=== PATIENT | female | born 1980 | race African-American/Black ===

== ENCOUNTER 2021-04-06 12:50 | Outpatient (CLI) | payer BC, SELFPAY ==
--- NOTE | ~2021-04-06 | US_ITS ---
EXAMINATION: US pelvic complete w TV DATE: 04/06/2021 13:52 INDICATION: Abnormal vaginal bleeding Comparison:No prior studies for comparison. TECHNIQUE: Multiple transabdominal and endovaginal sonographic images of the pelvis performed. FINDINGS: The uterus measures 16.5 x 9.6 x 10.5 cm. There are multiple uterine fibroids, largest disc rete mass measuring 9.4 x 8.2 x 6.9 cm. The endometrial complex measures 2.4 cm. The right ovary measures 3.5 x 2.4 x 1.6 cm and the left ovary measures 4.2 x 3.3 x 2.1 cm. There is a left ovarian cyst measuring 2.8 x 2.3 x 1.3 cm There is no free fluid in the pelvis. There are no abnormal masses seen on either side. IMPRESSION: 1. Enlarged uterus containing multiple fibroids, largest measuring 9.4 x 8.2 x 6.9 cm. 2: Endometrial thickening measuring 2.4 cm. 3: Left ovarian cyst measuring 2.8 cm greatest dimension. Reviewed, dictated and finalized at location B. NESS CONSULTANT
== END 2021-04-06 12:51 | disposition home or self-care (01) ==
PROVIDERS: PCP Family Medicine; Visit Provider Student in an Organized Health Care Education/Training Program
DX: N93.9 Abnormal uterine and vaginal bleeding, unspecified (principal); D25.9 Leiomyoma of uterus, unspecified; N83.202 Unspecified ovarian cyst, left side; R93.89 Abnormal findings on diagnostic imaging of other specified body structures
CPT/HCPCS: 76830; 76856

== ENCOUNTER 2021-07-01 10:12 | Outpatient (CLI) | payer BC, SELFPAY ==
--- NOTE | ~2021-07-01 | MM_ITS ---
EXAMINATION: MM screening janay BI w nubia HISTORY: Screening mammogram TECHNIQUE: Craniocaudal and mediolateral oblique 3-D tomosynthesis images were obtained and synthetic 2-D images were generated. CAD analysis was submitted and interpreted. COMPARISON: No prior mammogram is available for comparison at this institution. BREAST PARENCHYMAL COMPOSITION: There are scattered areas of fibroglandular density. FINDINGS: RIGHT BREAST: There are multiple small adjacent masses in the anterior third of the lower inner breas t. LEFT BREAST: There is focal asymmetry in the posterior third of the upper outer quadrant of the breas t. IMPRESSION: 1. Bilateral breast findings as described above which may represent the patient's baseline however no comparison is currently available. 2. Comparison with prior mammograms is necessary. BI-RADS Category 0: Incomplete: Needs comparison with prior mammograms. Reviewed, dictated and finalized at location A. IMPRESSION: 1. Bilateral breast findings as described above which may represent the patient 's baseline however no comparison is currently available. 2. Comparison with prior mammograms is necessary. BI-RADS Category 0: Incomplete: Needs comparison with prior mammograms.
== END 2021-07-01 10:13 | disposition home or self-care (01) ==
LOC: ANHIMG 10:16
PROVIDERS: PCP Family Medicine; Visit Provider Student in an Organized Health Care Education/Training Program
DX: Z12.31 Encounter for screening mammogram for malignant neoplasm of breast (principal); R92.8 Other abnormal and inconclusive findings on diagnostic imaging of breast
CPT/HCPCS: 77063; 77067

== ENCOUNTER 2021-09-23 13:12 | Outpatient (CLI) | payer BC, SELFPAY ==
--- NOTE | ~2021-09-23 | MMUS_ITS ---
EXAMINATION: MM diagnostic janay LT w nubia, US breast LT limited HISTORY: Focal asymmetry of the left breast on screening mammogram TECHNIQUE: Craniocaudal, mediolateral, and mediolateral oblique 3-D tomosynthesis images of the left breast were performed and synthetic 2-D images were generated. Spot compression views are also obtain ed. CAD analysis was submitted and interpreted. High resolution limited left breast ultrasound was pe rformed. COMPARISON: 07/01/2021, 09/11/2019 FINDINGS: MAMMOGRAPHIC FINDINGS: There is a return to baseline fibroglandular appearance with spot compression of the left breast in t he area questioned on screening mammogram. ULTRASOUND: There is no evidence of focal abnormal solid or cystic mass in the vicinity of the mammographic findi ng in question. IMPRESSION: 1. No mammographic or sonographic evidence of malignancy. 2. Recommend routine screening mammography. BI-RADS Category 2: Benign finding(s). Reviewed, dictated and finalized at location A. IMPRESSION: 1. No mammographic or sonographic evidence of malignancy. 2. Recommend routine screening mammography. BI-RADS Category 2: Benign finding(s).
== END 2021-09-23 13:13 | disposition home or self-care (01) ==
PROVIDERS: PCP Family Medicine; Visit Provider Student in an Organized Health Care Education/Training Program
DX: R92.8 Other abnormal and inconclusive findings on diagnostic imaging of breast (principal)
CPT/HCPCS: 76642; 77061; 77065; G0279

== ENCOUNTER 2021-11-04 11:27 | Outpatient (CLI) | payer BC, SELFPAY | END 2021-11-04 11:28 | disposition home or self-care (01) | LOC: ANHGOSHLAB 11:30 | PROVIDERS: PCP Family Medicine; Visit Provider Nurse Practitioner Family | DX: Z11.3 Encounter for screening for infections with a predominantly sexual mode of transmission (principal) | CPT/HCPCS: 36415 ==

== ENCOUNTER 2022-01-31 14:22 | Outpatient (CLI) | payer BC, SELFPAY ==
[2022-01-31 18:58] LABS: Hemoglobin A1C 6.3 % (<5.7)
[2022-01-31 19:08] LABS: Basophils Absolute Auto 0.1 K/mm3 (0.0-0.1); Basophils Percent Auto 0.7 % (0.2-1.2); Eosinophils Absolute Auto 0.2 K/mm3 (0-0.3); Eosinophils Percent Auto 2.6 % (0-4.4); Hematocrit 34.3 % (37.0-47.0); Hemoglobin 10.1 g/dL (12.0-15.0); Immature Granulocyte Absolute 0.02 K/mm3 (0.00-0.031); Immature Granulocyte Percent A 0.3 % (0-0.5); Lymphocytes Absolute Auto 2.31 K/mm3 (0.9-3.2); Lymphocytes Percent Auto 30.3 % (18.3-44.2); Mean Corpuscular HGB Conc 29.4 g/dl (32-36); Mean Corpuscular Hemoglobin 21.9 pg (26-34); Mean Corpuscular Volume 74.4 fl (80-100); Monocytes Absolute Auto 0.7 K/mm3 (0.1-0.6); Monocytes Percent Auto 8.7 % (2.6-8.5); Neutrophils Absolute Auto 4.4 K/mm3 (1.3-6.7); Neutrophils Percent Auto 57.4 % (45.5-73.1); Platelet Count Result 329 k/mm3 (150-375); Red Blood Count 4.61 M/mm3 (4.2-5.4); Red Cell Distribution Width 14.2 % (11.5-14.5); White Blood Count 7.6 K/mm3 (4.5-10.0)
[2022-01-31 20:25] LABS: Platelet Estimate Adequate (Adequate); Schistocytes None Seen (NORMAL)
[2022-01-31 20:26] LABS: Hypochromasia 1+ (NORMAL)
== END 2022-01-31 14:23 | disposition home or self-care (01) ==
LOC: ANHGOSHLAB 14:25
PROVIDERS: PCP Family Medicine; Visit Provider Family Medicine
DX: E11.9 Type 2 diabetes mellitus without complications (principal); D64.9 Anemia, unspecified
CPT/HCPCS: 36415; 83036; 85025

== ENCOUNTER 2022-12-07 15:43 | Outpatient (CLI) | payer BC, SELFPAY ==
[2022-12-07 20:31] LABS: Alanine Aminotransferase 22 U/L (6-35); Albumin Level 4.4 g/dL (3.5-5.1); Alkaline Phosphatase 40 U/L (38-126); Anion Gap 9 mmol/L (8-16); Aspartate Amino Transferase 34 U/L (14-36); Bilirubin,Total 0.5 mg/dL (0.2-1.3); Blood Urea Nitrogen 13 mg/dL (7-17); Calcium 9.5 mg/dL (8.4-10.2); Carbon Dioxide 26 mmol/L (22-30); Chloride 102 mmol/L (98-107); Estimated Glomerular Filt Rate > 60; Glucose 92 mg/dL (65-110); Potassium 3.7 mmol/L (3.4-5.0); Sodium 137 mmol/L (137-145)
[2022-12-07 21:26] LABS: Hemoglobin A1C 6.2 % (<5.7)
== END 2022-12-07 15:44 | disposition home or self-care (01) ==
LOC: ANHGOSHLAB 15:44
PROVIDERS: PCP Family Medicine; Visit Provider Family Medicine
DX: E11.9 Type 2 diabetes mellitus without complications (principal); I10 Essential (primary) hypertension
CPT/HCPCS: 36415; 80053; 83036

== ENCOUNTER 2023-11-06 13:27 | Outpatient (CLI) | payer BC, SELFPAY ==
--- NOTE | ~2023-11-06 | MM_ITS ---
EXAMINATION: MM screening [facility] BI w nubia HISTORY: Screening TECHNIQUE: Craniocaudal and mediolateral oblique 3-D tomosynthesis images were obtained and synthetic 2-D images were generated. CAD analysis was submitted and interpreted. COMPARISON: Comparison to multiple prior studies sequentially, with oldest reviewed study dated 09/10. BREAST PARENCHYMAL COMPOSITION: Not dense: There are scattered areas of fibroglandular density. FINDINGS: There is no evidence of suspicious mass, calcification, or architectural distortion to sugg est malignancy in either breast. There has been no suspicious interval change. IMPRESSION: 1. No mammographic evidence of malignancy. 2. Recommend routine screening mammography in one year. BI-RADS Category 1: Negative Reviewed, dictated and finalized at location B.
== END 2023-11-06 13:28 | disposition home or self-care (01) ==
LOC: MICIMG 13:28
PROVIDERS: PCP Family Medicine; Visit Provider Family Medicine
DX: Z12.31 Encounter for screening mammogram for malignant neoplasm of breast (principal)
CPT/HCPCS: 77063; 77067

== ENCOUNTER 2024-05-28 12:00 | Emergency (ER) | payer BC, SELFPAY ==
--- NOTE | ~2024-05-28 | XR_ITS ---
Clinical Indication: Cough PA and lateral views of the chest: Comparison: None Findings: The lungs are clear, without evidence of focal consolidation or pleural effusion. Cardiome diastinal silhouette is within normal limits. Bones and soft tissues are unremarkable. Impression: Normal chest. Reviewed, dictated and finalized at location . Impression: Normal chest.
--- NOTE | 2024-05-28 12:01 | ED_ITS ---
HPI - SOB/Dyspnea General Chief Complaint: Upper Respiratory Infection Stated Complaint: SOB Time Seen by Provider: 05/28/24 12:00 Source: patient Mode of arrival: ambulatory Limitations: no limitations History of Present Illness HPI Narrative: Jacquelyn is a 43-year-old female patient presenting to the clinic today with complaints of shortness of breath times x2-3 days. Has non-productive cough. Slight nasal congestion. History of reactive airways disease on record but patient denies. No history of PE, COPD,CHF, or pneumonia. Denies any fever, chills, or body aches. History of hypertension and type 2 diabetes. Related Data Allergies Allergy/AdvReac Type Severity Reaction Status Date / Time No Known Allergies Allergy Verified 05/28/24 12:12 Review of Systems Review of Systems: Pertinent positives per HPI. Patient denies any fever, chills, rash, headache, visual changes, dizziness, chest pain, palpitations, nausea, vomiting, diarrhea, constipation, abdominal pain, or any urinary issues. [facility] Past Medical History Medical History Environmental allergies Type 2 diabetes mellitus without complications Vitamin D deficiency Dyslipidemia Essential (primary) hypertension Fibroid HTN (hypertension) Surgical History Surgical History History of myomectomy (~01/04/23) exploratory laparotomy and abdominal myomectomy Family History Family History Other Fibroid Social History Social History Social History: Caffeine- tea Smoking status: Never smoker Alcohol intake: never Substance use: never Substance use type: does not use Lack of Transportation: No Lack of Food: Never True Current Housing: I Have Housing Concerned About Future Housing: No Difficulty Paying Gas/Electric Bills: No Difficulty Paying for Meds: No Currently Unemployed: No Education: Grade School Difficulty w/ Childcare or Family Care: No Living arrangements: with family Additional living arrangements comments: with Occupation/Education: occupation Gender identity (if verbalized by the patient): Female Sexual Orientation (if Verbalized by the Patient): Straight or Heterosexual Spiritual care concerns: No Agree to blood products: Yes Comments At the time of my signature, I reviewed and agree with the nursing past medical, surgical, social, and family history. There is no relevant family history pertinent to the patient complaint. Exam Narrative: General: Well-developed, well nourished, in [id number] respiratory distress Head: Normocephalic, atraumatic Eyes: Pupils equally round and reactive to light bilaterally, EOM intact, sclera and conjunctive clear, no discharge, lids normal Ears: TMs intact and clear, ear canals clear, no drainage, grossly hearing normal. Nose: Nares patent, no discharge, no inflammation, no sinus tenderness. Mouth: Oral pharynx without lesions or masses, good dentition, MMM. Neck: Supple, trachea midline, no enlargement of anterior or posterior cervical nodes, no thyroid masses or goiter palpable. Cardio: Regular rate and rhythm, s1 and s2 normal, no murmur appreciated. Resp: Lung sounds tight with expiratory wheezing, increased respiratory rate, sitting in tripod position with some intercostal retractions, oxygenation is 97% on room air Course Course Emergency Course: Portions of this record may have been created with voice recognition software. Level of Care: Express Care Visit Vital Signs Vital signs: Vital Signs Temperature 36.7 C 05/28/24 12:09 Pulse Rate 97 05/28/24 12:09 Respiratory Rate 32 H 05/28/24 12:09 Blood Pressure 178/101 H 05/28/24 12:09 Pulse Oximetry 97 05/28/24 12:09 Oxygen Delivery Room Air 05/28/24 12:09 Temperature 36.7 C 05/28/24 12:09 Pulse Rate 83 05/28/24 12:42 Respiratory Rate 24 H 05/28/24 12:42 Blood Pressure 178/101 H 05/28/24 12:09 Pulse Oximetry 94 05/28/24 12:42 Oxygen Delivery Room Air 05/28/24 12:09 Vital signs reviewed MDM - SOB/Dyspnea MDM Narrative Medical decision making narrative: At the time of visit patient is resting comfortably on the exam table. Patient appears to be nontoxic. Medications: Solu-Medrol 125 mg IM and DuoNeb hand-held neb treatment. Lung sounds improved aeration after DuoNeb but still having inspiratory and expiratory wheezing Labs: COVID testing was performed and was negative in the clinic today. Diagnostics: Chest x-ray was performed and was negative for any acute cardiopulmonary process. Plan: I suspect patient has bronchitis. Prescription for prednisone, albuterol inhaler, and Tessalon Perles was sent to the pharmacy. Supportive measures were discussed with the patient and they voiced understanding discharge instructions and agrees to treatment plan. Return precautions reviewed Differential Diagnosis Differential diagnosis: Likely acute exacerbation of chronic obstructive airways disease, congestive heart failure, community acquired pneumonia, asthma with exacerbation, pulmonary embolism and other (Viral illness, COVID) Lab Data Labs: Lab Results 05/28/24 Range/Units 12:20 POC SARS CoV-2 Ag Negative (Negative) Imaging Data Radiologist's impression: ITS Impressions Chest X-Ray 05/28/24 12:57 Impression: Normal chest. Discharge Plan Discharge Clinical Impression: Bronchitis Patient Disposition: Home Condition: Stable Instructions: Antibiotic Form, Acute Bronchitis (ED) Additional Instructions: Chest x-rays negative for any acute cardiopulmonary process Solu-Medrol 125 mg IM given in the clinic today DuoNeb hand-held neb treatment given in the clinic today Take prescription medications only as prescribed-albuterol inhaler, Tessalon Perles, and prednisone Start prednisone on May 29, 2024 Increase fluids and stay well hydrated Tylenol/motrin for pain/fever Flonase and OTC antihistamines as directed Vicks vapor rub to open sinuses Sinus rinses for congestion Cepacol spray, cough drops, throat lozenges, warm tea with honey/lemon, gargle salt water to soothe throat BRAT diet for diarrhea Clear liquids x 24 hours then advance as tolerated for nausea/vomiting Go to the ED if you develop a worsening in your condition- high fever not controlled by Tylenol or Motrin, dehydration, weakness, lethargy, shortness of breath, or chest pain. Follow up with your PCP in 3-5 days if symptoms persist. Patient Language: Other Prescriptions: New prednisone 20 mg tablet 40 mg PO DAILY 5 Days Qty: 10 0RF benzonatate 200 mg capsule 200 mg PO TID 7 Days Qty: 21 0RF albuterol sulfate 90 mcg/actuation HFA aerosol inhaler 2 puff inhalation Q4-6H PRN (Reason: shortness of breath or wheezing) 30 Days Qty: 8.5 0RF No Action cholecalciferol (vitamin D3) 50 mcg (2,000 unit) tablet 50 mcg PO DAILY Qty: 90 2RF (DME) OneTouch Verio test strips Strip See Rx Instructions .Route Qty: 100 1RF Rx Instructions: check blood sugars qdaily As directed (DME) lancets [OneTouch Delica Plus Lancet] 33 gauge misc See Rx Instructions .Route Qty: 100 1RF Rx Instructions: check blood sugars qdaily As directed (DME) blood-glucose meter [Blood Glucose Monitoring] Kit See Rx Instructions .Route Qty: 1 0RF Rx Instructions: check blood sugars q.day As directed metformin 500 mg tablet extended release 24 hr 1,000 mg PO DAILY Qty: 60 3RF ferrous sulfate 325 mg (65 mg iron) tablet 325 mg PO DAILY Qty: 90 1RF labetalol 200 mg tablet See Rx Instructions .ROUTE .COMPLEX Qty: 180 0RF Dose Instruction: TAKE 1 TABLET BY MOUTH EVERY 12 HOURS Rx Instructions: TAKE 1 TABLET BY MOUTH EVERY 12 HOURS amlodipine 5 mg tablet See Rx Instructions .ROUTE .COMPLEX Qty: 90 0RF Dose Instruction: Take 1 tablet by mouth once daily Rx Instructions: Take 1 tablet by mouth once daily Follow-up/Referrals: Regan Menard MD [Primary Care Provider] - Time of Disposition: 13:08 Quality NIHSS Nursing Documentation ED NIHSS nursing documentation: reviewed/agree
[2024-05-28 12:09] VITALS: BP 178/101; PULSE 97; RESP 32; TEMP 36.7; O2SAT 97
[2024-05-28] MEDS: methylPREDNISolone SOD SUCC 125 MG VIAL IM (12:18)
[2024-05-28] MEDS: IPRATROPIUM BR 0.02% INH SOLN 0.5 MG/2.5 ML VIAL INHALATION (12:18)
[2024-05-28] MEDS: ALBUTEROL SULFATE NEB 2.5 MG/3 ML INH INHALATION (12:19)
[2024-05-28 12:20] VITALS: PULSE 97; RESP 32; O2SAT 97
[2024-05-28 12:42] VITALS: PULSE 83; RESP 24; O2SAT 94
[2024-05-28 12:44] LABS: EDCOVIDSCREEN Negative (Negative)
[2024-05-28 13:19] VITALS: BP 157/91; PULSE 79; RESP 24; O2SAT 99
== END 2024-05-28 13:19 | disposition home or self-care (01) ==
PROVIDERS: Emergency Provider Nurse Practitioner Family; PCP Family Medicine
DX: J40 Bronchitis, not specified as acute or chronic (principal); Z20.822 Contact with and (suspected) exposure to COVID-19; E11.9 Type 2 diabetes mellitus without complications; Z79.84 Long term (current) use of oral hypoglycemic drugs; I10 Essential (primary) hypertension; E78.5 Hyperlipidemia, unspecified; E55.9 Vitamin D deficiency, unspecified
CPT/HCPCS: 71046; 87426; 94640; 99213; G0463; J2919

== ENCOUNTER 2024-07-26 00:15 | Day surgery (SDC) | payer BC, SELFPAY ==
[2024-04-15 09:30] VITALS: BMI 27.7
--- OUTSIDE RECORDS SUMMARY | 2024-04-22 00:08 | XMS_ITS | Clinical Summary ---
Author Organization [facility] Address [address] [place] [address] Care Team Providers Care Nurse Technician Name Role Phone Lisa Menard MD Primary Care Provider Allergies No known active allergies Medications hydroCHLOROthia zide (HYDRODIURIL) 25 mg tabletIndicatio ns:hypertension Take 1 tablet (25 mg total) by mouth structural analyst before breakfast 3 Active metFORMIN XR (GLUCOPHAGE XR) 500 mg 24 hr tablet Take 1 tablet (500 mg total) by mouth 2 (two) times a day 3 Active rosuvastatin (CRESTOR) 5 mg tabletIndicatio ns:hyperlipidem ia Take 1 tablet (5 mg total) by mouth nightly 3 Active ferrous sulfate 325 mg (65 mg of elemental iron) tabletIndicatio ns:Iron Deficiency Anemia Take 1 tablet (65 mg of elemental iron total) by mouth 3 (three) times a day with meals Active tranexamic acid (Lysteda) 650 mg tabletIndicatio ns:Menorrhagia Take 2 tablets by mouth every 8 hours by mouth for up to 5 days. 30 tablet 3 3 Active Additional Information Patient not taking.Informant: Self, Reported on 02/08/2023 labetaloL (NORMODYNE,GUTIERREZ DATE) 200 mg tabletIndicatio ns:hypertension Take 1 tablet (200 mg total) by mouth every 12 (twelve) hours 3 Active cholecalciferol (VITAMIN D-3) 5,000 unit tabletIndicatio ns:Vitamin D Deficiency Take 1 tablet (5,000 Units total) by mouth once a week Monday Active acetaminophen (TYLENOL) 500 mg tablet Take 2 tablets (1,000 mg total) by mouth every 6 (six) hours as needed for pain 60 tablet Active ibuprofen (ADVIL,MOTRIN) 600 mg tablet Take 1 tablet (600 mg total) by mouth every 6 (six) hours as needed for pain 30 tablet 3 Active Additional Information Patient not taking.Reported on 02/08/2023 polyethylene glycol (MIRALAX) 17 gram/dose bulk powder Take 17 g by mouth daily 235 g 3 Active Additional Information Patient not taking.Reported on 02/08/2023 oxyCODONE (ROXICODONE) 5 mg immediate release tabletIndicatio ns:Pain Take 1 tablet (5 mg total) by mouth every 4 (four) hours as needed for pain 10 tablet 3 Active Additional Information Patient not taking.Reported on 02/08/2023 Active Problems Problem Noted Date Diagnosed Date Fibroid uterus 01/04/2023 Intramural leiomyoma of uterus 10/13/2022 Surgical History Surgery Date Site/Laterality Comments NO PAST SURGERIES Medical History Medical History Date Comments Hypertension High cholesterol DM2 (diabetes mellitus, type 2) (HCC) Leiomyoma Family History Medical History Relation Name Comments No Known Problems Father No Known Problems Mother Anesthesia problems Neg Hx Relation Name Status Comments Father Mother Social History Tobacco Use Types Packs/Day Years Used Date Smoking Tobacco: Never Smokeless Tobacco: Never Tobacco Cessation:Counseling Given: Not Answered AUDIT-C Answer Date Recorded Q1: How often do you have a drink containing alcohol? Never 01/04/2023 Q2: How many drinks containi ng alcohol do you have on a typical day when you are drinking? Patient does not drink Q3: How often do you have si x or more drinks on one occasion? Never 01/04/2023 Personal Safety Answer Date Recorded Have you ever been in or are you currently in a harmful physical or emotional relationship or is someone making you feel afraid or unsafe? Denies 01/04/2023 Comments No Sex and Gender Information Value Date Recorded Sex Assigned at Not on file Legal Sex Female 11:14 AM CDT Gender Identity Not on file Sexual Orientation Not on file Obstetrics History Para Term AB IAB SAB Ectopic Multiple Livin g Live Births 0 0 0 0 0 0 0 0 0 0 0 Last Filed Vital Signs Vital Sign Reading Time Taken Comments Blood Pressure 196/92 02/08/2023 1:27 PM REMOTE PILOT OPERATOR Pulse 70 01/07/2023 12:43 PM REMOTE PILOT OPERATOR Temperature 36.9 C (98.4 F) 01/07/2023 12:43 PM REMOTE PILOT OPERATOR Respiratory Rate 18 01/07/2023 12:43 PM REMOTE PILOT OPERATOR Oxygen Saturation 100% 01/07/2023 12:43 PM REMOTE PILOT OPERATOR Inhaled Oxygen Concentration - - Weight 79.9 kg (176 lb 3.2 oz) 02/08/2023 12:58 PM REMOTE PILOT OPERATOR Height 165.1 cm (5' 5) 02/08/2023 12:58 PM REMOTE PILOT OPERATOR Body Mass Index 29.32 02/08/2023 12:58 PM REMOTE PILOT OPERATOR Plan of Treatment Health Maintenance Due Date Last Done Comments Breast Cancer Screening-Mammogram 1978 Cervical Cancer Screening 1978 Colon Cancer Screening-Colonoscopy 1978 Depression Screening 1978 Hepatitis C Screening 1978 DTaP/Tdap/Td Vaccine (1 - Tdap) 1989 Regular Well Visit/Exam 18-64 1996 Covid-19 Vaccine (2 - 2023-2 5 season) 2023 02/05/2021 Influenza Vaccine (#1) 2023 , 03/23/2021 Hepatitis B Screening Completed 10/15/2021 HPV Vaccines Aged Out No longer eligi ble based on patient's age to complete this topic Pneumococcal vaccine <65 Aged Out No longer eligible based on patient's age to complete this topic Medical Devices Implanted Type Area Policy Value Calculator Device Identifier Shelf Expiration Date Model / Serial / Lot Eth[employer] Endo Surgery Gynecare Interceed 4x3in Absorbable Control Beyond Closure Pelvic 4350 - Sn/A - [id number] Implanted:Qty : 1 on 01/04/2023 by Jyoti Barroso MD at [facility] Other - see comments N/A: Pelvis [employer] End[employer] Surgery [id number] 11/12/2025 4350 / N/A / Description:Interceed - abso rbable adhesion barrier Insurance [place] [place] Advance Directives For more information, please contact: [phone] * Full Code (Latest Code Status on File) Date Activated Date Inactivated Comments 01/04/2023 2:16 PM 01/07/2023 6:03 PM Care Teams Nurse Technician Relationship Specialty Start Date End Date Lisa Menard MD [address] [facility] [address] [place] [address] PCP - General Family Practice 12/30/22
--- OUTSIDE RECORDS SUMMARY | 2024-04-22 00:08 | XMS_ITS | Patient Health Summary ---
Author Organization [facility] Address [address] [place] [address] Care Team Providers Care Prosthetics Technician Name Role Phone Unavailable Primary Care Provider Unavailabl e Note from [facility],non-owned Affiliates and Associated Physician Practices is amultiple site organization consisting of ambulatory clinics and hospital sitesin [place], [place], [place] and [place]. This disclosure is being madepursuant to the Care Everywhere program and may not contain all information available regarding this patient. Last updated 17.[facility] Social History Tobacco Use Types Packs/Day Years Used Date Smoking Tobacco: Never Assessed Sex and Gender Information Value Date Recorded Sex Assigned at Not on file Gender Identity Not on file Sexual Orientation Not on file
--- OUTSIDE RECORDS SUMMARY | 2024-04-22 00:08 | XMS_ITS | Referral Summary ---
Author Organization [facility] Address [address] [place] [address] Care Team Providers Care Wood Tool Maker Name Role Phone Unavailable Primary Care Provider Unavailabl e Source Comments [facility],non-owned Affiliates and Associated Physician Practices is amultiple site organization consisting of ambulatory clinics and hospital sitesin [place], [place], [place] and [place]. This disclosure is being madepursuant to the Care Everywhere program and may not contain all information available regarding this patient. Last updated 17.[facility] Social History Tobacco Use Types Packs/Day Years Used Date Smoking Tobacco: Never Assessed Sex and Gender Information Value Date Recorded Sex Assigned at Not on file Gender Identity Not on file Sexual Orientation Not on file Plan of Treatment Not on file
--- OUTSIDE RECORDS SUMMARY | 2024-04-22 00:08 | XMS_ITS | Clinical Summary ---
Author Organization [facility] Address [address] [place] [address] Care Team Providers Care Aviation Technician Aircraft Name Role Phone Unavailable Primary Care Provider Unavailabl e Source Comments [facility],non-owned Affiliates and Associated Physician Practices is amultiple site organization consisting of ambulatory clinics and hospital sitesin [place], [place], [place] and [place]. This disclosure is being madepursuant to the Care Everywhere program and may not contain all information available regarding this patient. Last updated 17.[facility] [employer] Social History Tobacco Use Types Packs/Day Years Used Date Smoking Tobacco: Never Assessed Sex and Gender Information Value Date Recorded Sex Assigned at Not on file Gender Identity Not on file Sexual Orientation Not on file Plan of Treatment Health Maintenance Due Date Last Done Comments COLOGUARD (AGES 45-75) - COL ON CA SCREENING 1978 COLON MONITORING 1978 COLONOSCOPY - COLON CA SCREENING 1978 CT COLONOGRAPHY - COLON CA SCREENING 1978 Colorectal Cancer Screening 1978 FIT - COLON CA SCREENING 1978 FLEX SIG - COLON CA SCREENING 1978 LIPID TESTING 1978 MAMMOGRAM 1978 PAP SMEAR 1978 HIV SCREENING 1993 HEPATITIS C SCREENING 08/23/1996 DTAP/TDAP/TD VACCINES (1 - Tdap) 1997 HEPATITIS B VACCINE (1 of 3 - 19+ 3-dose series) 1997 COVID-19 VACCINE ( - 2023-2 5 season) 2023 02/05/2021, 06/08/2020, 05/08/2020 INFLUENZA VACCINE (#1) 2023 , 01/04/2022, 03/23/2021 DEPRESSION SCREENING 02/14/2024 ZOSTER VACCINE (1 of 2) 2028 HIB VACCINE Aged Out No longer eligi ble based on patient's age to complete this topic HPV VACCINE Aged Out No longer eligi ble based on patient's age to complete this topic MENINGOCOCCAL (Group B) VACCINE Aged Out No longer eligible b ased on patient's age to complete this topic MENINGOCOCCAL VACCINE Aged Out No osmar elias eligible based on patient's age to complete this topic PNEUMOCOCCAL VACCINE Aged Out No long er eligible based on patient's age to complete this topic
--- OUTSIDE RECORDS SUMMARY | 2024-04-22 00:08 | XMS_ITS | Continuity of Care Document ---
Author Organization [facility] Address [address] [place] [address] Care Team Providers Care Credit Analyst Name Role Phone Ebony Gruber Unavailable Unavailable Allergies, Adverse Reactions, Alerts Substance Reaction Status Criticality No Known Allergies Active No Inform ation Medications Medication Instructions Dosage Effective Dates (start - stop) Status Comments hydrochlorothiazide 25 mg tablet take 1 tablet by oral route every day 25 MG - Active labetalol 100 mg tablet take 1 AND 1/2 tablet by oral route 2 times every day - Active ferrous sulfate 325 mg (65 mg iron) tablet take 1 tablet by porsche route twice a day - Active Megace 40 MG ORAL TABLET Take one tablet by oral route twice per day - Active Procedures Procedure Date OFFICE/OUTPATIENT VISIT, [facility] OFFICE OUTPATIENT VISIT EST Advance Directives Directive Yes / No Effective Date File Name No Information Encounters Encounter Description Practice Location Reason(s) For Visit Diagnoses Date Provider Providers Copied on Encounter [facility], [address], [id number], [place] [facility] No Information Christoph Beck. [address], [place], [id number] , [place]. tel:[phone] OFFICE/OUTPAT IENT VISIT, [facility], [address], [id number], [place] [facility] hypertension (chief complaint)heav y menses (chief complaint) Body mass index (BMI) 32.0-32.9, adultHyfrancis goode, unspecified typeIron deficiency anemia due to chronic blood loss 1 Christoph Beck. [address], [place], [place], [id number] , [place]. tel: [phone] Referring Provider: Ebony Hawthorne W, [address], [place], [address] . tel:[phone] OFFICE OUTPATIENT VISIT EST [facility], [address], [place], , [id number], [place] [facility] hypertension (chief complaint) Body mass index (BMI) 32.0-32.9, adultHyfrancis goode, unspecified type 1 Luis Alberto Hollis. [address] [place] [address] , , [address], [place]. tel: [phone] Referring Provider: Telma Markham, [address], , [address]. tel:[phone] Family History Family Member Type Diagnosis Age At Onset No Information Payers Payer name Insurance type Covered libertarian ID Authoriza tion(s) No Information Social History Type Description Quantity Date Captured Comments Sex Female Smoking Status No Information Chief Complaint And Reason For Visit No Information Reason For Referral Reason For Referral No Information Plan Of Treatment Date Type Action Status Goal Lifestyle education regardin g diet completed Goal Lifestyle education regardin g diet completed History Of Present Illness Encounter Date Complaint History Of Prese nt Illness hypertension The severity has been described as being moderate- severe. Risk factors include race, family history HTN, gout or CAD, high salt intake and obesity. Associated symptoms include fatigue. Pertinent negatives include chest pain and diaphoresis. heavy menses The symptoms are reported as being severe. on cycle now. Anemia. hypertension The symptoms beg an 1 day ago. Risk factors include race, family history HTN and gout or CAD. Pertinent negatives include chest pain, dyspnea, epistaxis, fatigue, headache, irregular heartbeat/palpitations, transient weakness and visual disturbances. Functional Status Date Functional Assessmen t No Information Instructions Date Instruction Additional Infor stacia Continue meds as ord ered and follow up routinely Related to Hypertension, unspecified type Decrease salt intake Related to Hypertension, unspecified type exercise and avoid soft drinks R elated to Hypertension, unspecified type Lifestyle education regarding di et Related to Body mass index [BMI] 32.0-32.9, adult CHECK BP DAILY AND K EEP A LOG, REPORT ELEVATED BP TO PCP Related to Hypertension, unspecified type TAKE MEDICATIONS PRESCRIBED R elated to Hypertension, unspecified type DANGERS OF HYPERTENSION DISCUSSE D Related to Hypertension, unspecified type RTC FOR WORSENIGN SYMPTOMS Relat ed to Hypertension, unspecified type FOLLOW UP WITH PCP IN 2-3 DAYS R elated to Hypertension, unspecified type Lifestyle education regarding di et Related to Body mass index [BMI] 32.0-32.9, adult Assessments Type Assessment Date No Information Patient Care Teams Name Effective Dates (start - stop) Status Members No Information
--- OUTSIDE RECORDS SUMMARY | 2024-04-22 00:08 | XMS_ITS | Referral Summary ---
Author Organization [facility] Address [address] [place] [address] Care Team Providers Care Code Inspector Name Role Phone Lisa Menard MD Primary Care Provider Allergies No known active allergies Medications hydroCHLOROthia zide (HYDRODIURIL) 25 mg tabletIndicatio ns:hypertension Take 1 tablet (25 mg total) by mouth stone engraver before breakfast 3 Active metFORMIN XR (GLUCOPHAGE [...] uterus 01/04/2023 Intramural leiomyoma of uterus 10/13/2022 Social History Tobacco Use Types Packs/Day Years [...] on file Sexual Orientation Not on file Last Filed Vital Signs Vital Sign Reading Time Taken Comments Blood Pressure 196/92 02/08/2023 1:27 PM MARINE ANIMAL TRAINER Pulse 70 01/07/2023 12:43 PM MARINE ANIMAL TRAINER Temperature 36.9 C (98.4 F) 01/07/2023 12:43 PM MARINE ANIMAL TRAINER Respiratory Rate 18 01/07/2023 12:43 PM MARINE ANIMAL TRAINER Oxygen Saturation 100% 01/07/2023 12:43 PM MARINE ANIMAL TRAINER Inhaled Oxygen Concentration - - Weight 79.9 kg (176 lb 3.2 oz) 02/08/2023 12:58 PM MARINE ANIMAL TRAINER Height 165.1 cm (5' 5) 02/08/2023 12:58 PM MARINE ANIMAL TRAINER Body Mass Index 29.32 02/08/2023 12:58 PM MARINE ANIMAL TRAINER Plan of Treatment Not on file Medical Devices Implanted Type Area Rhit Device Identifier Shelf Expiration Date Model / Serial / Lot Ethicon Endo Surgery Gynecare Interceed 4x3in Absorbable Control Beyond Closure Pelvic 4350 - Sn/A - [id number] Implanted:Qty : 1 on 01/04/2023 by Jyoti Barroso MD at [facility] Other - see comments N/A: Pelvis [employer] End[employer] Surgery [id number] 11/12/2025 4350 / N/A / Description:Interceed - abso rbable adhesion barrier Insurance [employer] [facility] Advance Directives For more information, please contact: [phone] * Full Code (Latest Code Status on File) Date Activated Date Inactivated Comments 01/04/2023 2:16 PM 01/07/2023 6:03 PM Care Teams Code Inspector Relationship Specialty Start Date End Date Lisa Menard MD [address] [facility] [place] [address] PCP - General Family Practice 12/30/22
[2024-07-19 08:59] VITALS: BMI 28.3
--- OUTSIDE RECORDS SUMMARY | 2024-07-26 00:19 | XMS_ITS | Clinical Summary ---
Author Organization [facility] Address [address] [place] [address] Care Team Providers Care Medical Staff Assistant Name Role Phone Unavailable Primary Care Provider Unavailabl e Source Comments [facility],non-owned Affiliates and Associated Physician Practices is amultiple site organization consisting of ambulatory clinics and hospital sitesin [place], [place], [place] and [place]. This disclosure is being madepursuant to the Care Everywhere program and may not contain all information available regarding this patient. Last updated 17.[facility] Social History Tobacco Use Types Packs/Day Years Used Date Smoking Tobacco: Never Assessed Comments Unknown Sex and Gender Information Value Date Recorded Sex Assigned at Not on file Legal Sex Female 3:28 PM CDT Gender Identity Not on file Sexual [...] - 19+ 3-dose series) 1997 COVID-19 VACCINE (2023-2 5 season) 2023 02/05/2021, 06/08/2020, 05/08/2020 DEPRESSION SCREENING 02/14/2024 INFLUENZA VACCINE (Season Ended) 2024 11/17/2022, 01/04/2022, 03/23/2021 ZOSTER VACCINE (1 of 2) 2028 HIB VACCINE Aged Out No longer eligi ble based on patient's age to complete this topic HPV VACCINE Aged Out No longer eligi ble based on patient's age to complete this topic MENINGOCOCCAL (Group B) VACCINE SHARED DECISION-MAKING Aged Out No longer eligible based on patient's age to complete this topic MENINGOCOCCAL GROUPS A/C/Y/W VACCINE Aged Out No longer eligible b ased on patient's age to complete this topic PNEUMOCOCCAL VACCINE Aged Out No long er eligible based on patient's age to complete this topic
--- OUTSIDE RECORDS SUMMARY | 2024-07-26 00:19 | XMS_ITS | Clinical Summary ---
Author Organization [facility] Address [address] [place] [address] Care Team Providers Care Die Cast Engineer Name Role Phone Lisa Menard MD Primary Care Provider Allergies No known active allergies Medications hydroCHLOROthia zide (HYDRODIURIL) 25 mg tabletIndicatio ns:hypertension Take 1 tablet (25 mg total) by mouth pipe wrapping machine operator before breakfast 3 Active metFORMIN XR (GLUCOPHAGE [...] Comments Blood Pressure 196/92 02/08/2023 1:27 PM FRAME BENDER Pulse 70 01/07/2023 12:43 PM FRAME BENDER Temperature 36.9 C (98.4 F) 01/07/2023 12:43 PM FRAME BENDER Respiratory Rate 18 01/07/2023 12:43 PM FRAME BENDER Oxygen Saturation 100% 01/07/2023 12:43 PM FRAME BENDER Inhaled Oxygen Concentration - - Weight 79.9 kg (176 lb 3.2 oz) 02/08/2023 12:58 PM FRAME BENDER Height 165.1 cm (5' 5) 02/08/2023 12:58 PM FRAME BENDER Body Mass Index 29.32 02/08/2023 12:58 PM FRAME BENDER Plan of Treatment Health Maintenance Due Date Last Done Comments Breast Cancer Screening-Mammogram 1978 Cervical Cancer Screening 1978 Colon Cancer Screening-Colonoscopy 1978 Depression Screening 1978 Hepatitis C Screening 1978 DTaP/Tdap/Td Vaccine (1 - Tdap) 1989 Regular Well Visit/Exam 18-64 1996 Covid-19 Vaccine (2 - 2023-2 5 season) 2023 02/05/2021 Influenza Vaccine (Season Ended) 2024 01/04/2022, 03/23/2021 Hepatitis B Screening Completed 10/15/2021 HPV Vaccines Aged Out No longer eligi ble based on patient's age to complete this topic Pneumococcal vaccine <65 Aged Out No longer eligible based on patient's age to complete this topic Medical Devices Implanted Type Area Horse Trainer Device Identifier Shelf Expiration Date Model / Serial / Lot [employer] End[employer] Surgery Gynecare Interceed 4x3in Absorbable Control Beyond Closure Pelvic 4350 - Sn/A - [id number] Implanted:Qty : 1 on 01/04/2023 by Jyoti Barroso MD at [facility] Other - see comments N/A: Pelvis [employer] [id number] 11/12/2025 4350 / N/A / Description:Interceed - abso rbable adhesion barrier Insurance [employer] [place] [employer] [place] Advance Directives For more information, please contact: [phone] * Full Code (Latest Code Status on File) Date Activated Date Inactivated Comments 01/04/2023 2:16 PM 01/07/2023 6:03 PM Care Teams Die Cast Engineer Relationship Specialty Start Date End Date Lisa Menard MD [address] [place] [address] PCP - General Family Practice 12/30/22
--- OUTSIDE RECORDS SUMMARY | 2024-07-26 00:20 | XMS_ITS | Referral Summary ---
[facility] Address [address] [place] [address] Care Team Providers Care L D Rn Name Role Phone Lisa Menard MD Primary Care Provider Allergies No known active allergies Medications hydroCHLOROthia zide (HYDRODIURIL) 25 mg tabletIndicatio ns:hypertension Take 1 tablet (25 mg total) by mouth mixing tank operator before breakfast 3 Active metFORMIN XR [...] Comments Blood Pressure 196/92 02/08/2023 1:27 PM WEATHERIZATION SPECIALIST Pulse 70 01/07/2023 12:43 PM WEATHERIZATION SPECIALIST Temperature 36.9 C (98.4 F) 01/07/2023 12:43 PM WEATHERIZATION SPECIALIST Respiratory Rate 18 01/07/2023 12:43 PM WEATHERIZATION SPECIALIST Oxygen Saturation 100% 01/07/2023 12:43 PM WEATHERIZATION SPECIALIST Inhaled Oxygen Concentration - - Weight 79.9 kg (176 lb 3.2 oz) 02/08/2023 12:58 PM WEATHERIZATION SPECIALIST Height 165.1 cm (5' 5) 02/08/2023 12:58 PM WEATHERIZATION SPECIALIST Body Mass Index 29.32 02/08/2023 12:58 PM WEATHERIZATION SPECIALIST Plan of Treatment Not on file Medical Devices Implanted Type Area Route Contractor Device Identifier Shelf Expiration Date Model / Serial / Lot [employer] Endo Surgery Gynecare Interceed 4x3in Absorbable Control Beyond Closure Pelvic 4350 - Sn/A - [id number] Implanted:Qty : 1 on 01/04/2023 by Jyoti Barroso MD at [facility] Other - see comments N/A: Pelvis [employer] [id number] 11/12/2025 4350 / N/A / Description:Interceed - abso rbable adhesion barrier Insurance [employer] [facility] Advance Directives For more information, please contact: [phone] * Full Code (Latest Code Status on File) Date Activated Date Inactivated Comments 01/04/2023 2:16 PM 01/07/2023 6:03 PM Care Teams L D Rn Relationship Specialty Start Date End Date Lisa Menard MD [address] [place] [address] PCP - General Family Practice 12/30/22
--- OUTSIDE RECORDS SUMMARY | 2024-07-26 00:20 | XMS_ITS | Continuity of Care Document ---
Author Organization [facility] Address [address] [place] [address] Care Team Providers Care Gauger Chief Name Role Phone Ebony Gruber Unavailable Unavailable [...] Active Procedures Procedure Date OFFICE/OUTPATIENT VISIT, BANNER OFFICE OUTPATIENT VISIT EST Advance Directives Directive Yes / No Effective Date File Name No Information Encounters Encounter Description Practice Location Reason(s) For Visit Diagnoses Date Provider Providers Copied on Encounter [facility], [address], [id number], [place] [facility] No Information Christoph Beck. [address], [place], [id number] , [place]. tel:[phone] OFFICE/OUTPAT IENT VISIT, [facility], [address], [id number], [place] [facility] hypertension (chief complaint)heav y menses (chief complaint) Body mass index (BMI) 32.0-32.9, adultHyfrancis goode, unspecified typeIron deficiency anemia due to chronic blood loss 1 Christoph Beck. [address], [place], [place], [id number] , [place]. tel: [phone] Referring Provider: Ebony Hawthorne W, [address], [place], [address] . tel:[phone] OFFICE OUTPATIENT VISIT EST [facility], [address], [place], , [id number], [place] [facility] hypertension (chief complaint) Body mass index (BMI) 32.0-32.9, adultHyfrancis goode, unspecified type 1 Luis Alberto Hollsi. [address] [place] , , [address], [place]. tel: [phone] Referring Provider: Telma Markham, [address] [place], , [address]. tel:[phone] Family History Family Member Type Diagnosis Age [...]
--- OUTSIDE RECORDS SUMMARY | 2024-07-26 00:20 | XMS_ITS ---
Author Organization Unknown Medications Medication Instructions Effective Dates (start - stop) Status follicle stimulating hormone 75 UNT / luteinizing hormone 75 UNT Injection [Menopur] - Completed - - Compl eted 24 HR metformin hydrochlorid e 500 MG Extended Release Oral Tablet - Complete d [id number] 200 ACTUAT albuter ol 0.09 MG/ACTUAT Metered Dose Inhaler - Comple bel labetalol hydrochloride 200 MG Oral Tablet - Completed - - Compl eted - - Compl eted 1.08 ML follitropin beta 833 UNT/ML Cartridge [Follistim] - Completed ferrous sulfate 325 MG Oral Tablet 05-20T:00:00Z - Completed oxycodone hydrochloride 5 MG Oral Tablet - Completed tranexamic acid 650 MG Oral Tablet 8T:00:00Z - Completed ferrous sulfate 325 MG Oral Tablet 2022-02T00:00:00Z - Completed 0.5 ML ganirelix acetate 0.5 MG/ML Prefilled Syringe - Completed hydrochlorothiazide 25 MG Or al Tablet - Completed hydrochlorothiazide 25 MG Or al Tablet - Completed 24 HR metformin hydrochlorid e 500 MG Extended Release Oral Tablet - Complete d rosuvastatin calcium 5 MG Or al Tablet - Completed hydrochlorothiazide 25 MG Or al Tablet - Completed ibuprofen 600 MG Oral Tablet [id number] 0:00:00Z - Completed rosuvastatin calcium 5 MG Or al Tablet - Completed labetalol hydrochloride 100 MG Oral Tablet - Completed follicle stimulating hormone 75 UNT / luteinizing hormone 75 UNT Injection [Menopur] - Completed hydrochlorothiazide 25 MG Or al Tablet - Completed labetalol hydrochloride 200 MG Oral Tablet - Completed - - Compl eted labetalol hydrochloride 200 MG Oral Tablet - Completed rosuvastatin calcium 5 MG Or al Tablet - Completed Patient Care team information Name Category Status Period Participants - - Proposed period not known -
[2024-07-26 07:28] VITALS: BP 151/88; PULSE 62; RESP 20; TEMP 36.4; O2SAT 100; BMI 27.8
[2024-07-26] MEDS: LACTATED RINGERS 1,000 ML 150 ML IV CONT (07:33)
[2024-07-26 07:45] LABS: Glucose Point of Care 89 mg/dl (65-105)
--- NOTE | 2024-07-26 07:49 | P.PNAN_ITS ---
Anes - Initial Pre Proc Eval Procedure: Operation Date: 07/26/24 08:15 Proposed Procedures p Screening Colonoscopy - Bart Meraz MD Date/Time: 07/26/24 07:49 Surgeon: Bart Meraz MD Pre Op Diagnosis: Screening for malignant neoplasm of colon Patient Data Age: 43 Gender: F Height: 1.73 m Weight: 83 kg Last Vital Signs Temp 36.4 C L 07/26/24 07:28 Pulse 62 07/26/24 07:28 Resp 20 07/26/24 07:28 BP 151/88 H 07/26/24 07:28 Pulse Ox 100 07/26/24 07:28 O2 Del Method Room Air 07/26/24 07:28 Allergies Allergy/AdvReac Type Severity Reaction Status Date / Time No Known Allergies Allergy Verified 07/26/24 07:25 Home Medications ?Medication ?Instructions ?Recorded ?Confirmed ?Type blood-glucose meter (Blood Glucose #1 ea 08/10/21 06/12/24 Rx Monitoring kit) blood sugar diagnostic (OneTouch #100 ea 08/11/21 06/12/24 Rx Verio test strips) lancets 33 gauge (OneTouch Delica #100 ea 08/11/21 06/12/24 Rx Plus Lancet) cholecalciferol (vitamin D3) 50 50 mcg PO DAILY #90 tabs 06/07/23 07/26/24 Rx mcg (2,000 unit) tablet metformin 500 mg tablet,extended 1,000 mg (2 x 500 mg) PO DAILY #60 10/17/23 07/26/24 Rx release 24 hr tabs ferrous sulfate 325 mg (65 mg 325 mg PO DAILY #90 tabs 12/04/23 06/12/24 Rx iron) tablet albuterol sulfate 90 mcg/actuation 2 puff inhalation Q4-6H PRN 06/12/24 07/26/24 Rx aerosol inhaler shortness of breath or wheezing 30 days #8.5 grams rosuvastatin 5 mg tablet 5 mg PO QHS #90 tabs 06/12/24 07/26/24 Rx cholecalciferol (vitamin D3) 1,250 1,250 mcg PO WEEKLY #14 tabs 06/24/24 07/26/24 Rx mcg (50,000 unit) tablet amlodipine 5 mg tablet 5 mg PO DAILY #90 tabs 06/25/24 07/26/24 Rx labetalol 200 mg tablet 200 mg PO BID #180 tabs 07/09/24 07/26/24 Rx Laboratory Tests 07/26/24 07:41 POC Capillary Glucose 89 mg/dl (65-105) Patient hx anesthesia problems: none Family hx anesthesia problems: none Results Review: All pre-operative results and documents have been reviewed as part of the pre- operative evaluation. [facility] Past Medical History Medical History Environmental allergies Type 2 diabetes mellitus without complications Vitamin D deficiency Dyslipidemia Essential (primary) hypertension Fibroid HTN (hypertension) Surgical History Surgical History History of myomectomy (~01/04/23) exploratory laparotomy and abdominal myomectomy Family History Family History Other Fibroid Social History Social History Social History: Caffeine- tea Smoking status: Never smoker Alcohol intake: never Substance use: never Substance use type: does not use Lack of Transportation: No Lack of Food: Never True Current Housing: I Have Housing Concerned About Future Housing: No Difficulty Paying Gas/Electric Bills: No Difficulty Paying for Meds: No Currently Unemployed: No Education: Grade School Difficulty w/ Childcare or Family Care: No Living arrangements: with family Additional living arrangements comments: and Children Occupation/Education: occupation Gender identity (if verbalized by the patient): Female Sexual Orientation (if Verbalized by the Patient): Straight or Heterosexual Spiritual care concerns: No Agree to blood products: Yes Anes - Eval Final PreProcedure Day of Procedure 07/26/24 07:49 Patient weight: overweight Heart: regular rate and rhythm Lungs: clear to auscultation Airway: Mallampati scale class II Neurological: alert and oriented Last oral intake: >/= 8 hours ASA classification: III Emergent: no Anesthetic plan: proceed Anesthesia type and monitoring: general GIVS and standard monitoring Results Review: All pre-operative results and documents have been reviewed as part of the pre- operative evaluation. Informed Consent: The patient's anesthetic plan and its attendant risks and benefits were discu ssed with the patient/family/POA. Questions were solicited and answers provided to the satisfaction of the patient/family/POA.
[2024-07-26 07:58] LABS: BEDSIDEPREGUCG Negative (Negative)
--- NOTE | 2024-07-26 08:14 | PM.HPGS ---
History of Present Illness History of Present Illness Consent: Risks, benefits, and alternatives have been discussed and questions answered. Patient agrees to proceed with procedure. Chief complaint: Screening for malignant neoplasm of colon Narrative: Jacquelyn Ardon is a 43 year old female here for first screening colonoscopy Review of Systems Review of Systems: All systems reviewed & are unremarkable except as noted in HPI and below PMFSH Past Medical History Medical History (Updated 07/26/24 @ 08:15 by Bart Meraz MD) Colon cancer screening Environmental allergies Type 2 diabetes mellitus without complications Vitamin D deficiency Dyslipidemia Essential (primary) hypertension Fibroid HTN (hypertension) Surgical History Surgical History History of myomectomy (~01/04/23) exploratory laparotomy and abdominal myomectomy Family History Family History Other Fibroid Social History Social History Social History: Caffeine- tea Smoking status: Never smoker Alcohol intake: never Substance use: never Substance use type: does not use Lack of Transportation: No Lack of Food: Never True Current Housing: I Have Housing Concerned About Future Housing: No Difficulty Paying Gas/Electric Bills: No Difficulty Paying for Meds: No Currently Unemployed: No Education: Grade School Difficulty w/ Childcare or Family Care: No Living arrangements: with family Additional living arrangements comments: and Children Occupation/Education: occupation Gender identity (if verbalized by the patient): Female Sexual Orientation (if Verbalized by the Patient): Straight or Heterosexual Spiritual care concerns: No Agree to blood products: Yes Meds Home Medications and Allergies Home Medications ?Medication ?Instructions ?Recorded ?Confirmed ?Type blood-glucose meter (Blood Glucose #1 ea 08/10/21 06/12/24 Rx Monitoring kit) blood sugar diagnostic (OneTouch #100 ea 08/11/21 06/12/24 Rx Verio test strips) lancets 33 gauge (OneTouch Delica #100 ea 08/11/21 06/12/24 Rx Plus Lancet) cholecalciferol (vitamin D3) 50 50 mcg PO DAILY #90 tabs 06/07/23 07/26/24 Rx mcg (2,000 unit) tablet metformin 500 mg tablet,extended 1,000 mg (2 x 500 mg) PO DAILY #60 10/17/23 07/26/24 Rx release 24 hr tabs ferrous sulfate 325 mg (65 mg 325 mg PO DAILY #90 tabs 12/04/23 06/12/24 Rx iron) tablet albuterol sulfate 90 mcg/actuation 2 puff inhalation Q4-6H PRN 06/12/24 07/26/24 Rx aerosol inhaler shortness of breath or wheezing 30 days #8.5 grams rosuvastatin 5 mg tablet 5 mg PO QHS #90 tabs 06/12/24 07/26/24 Rx cholecalciferol (vitamin D3) 1,250 1,250 mcg PO WEEKLY #14 tabs 06/24/24 07/26/24 Rx mcg (50,000 unit) tablet amlodipine 5 mg tablet 5 mg PO DAILY #90 tabs 06/25/24 07/26/24 Rx labetalol 200 mg tablet 200 mg PO BID #180 tabs 07/09/24 07/26/24 Rx Allergies Allergy/AdvReac Type Severity Reaction Status Date / Time No Known Allergies Allergy Verified 07/26/24 07:25 Vital Signs Vital Signs - 24 hr 07/26/24 07:28 Temperature 97.5 F L Pulse Rate 62 Respiratory Rate 20 Blood Pressure 151/88 H Pulse Oximetry 100 Oxygen Delivery Room Air Exam Const: General: comfortable and no acute distress HENMT: Face/Nose/Sinus: Normal nares present Eyes: General: appearance normal, both eyes and all related structures Neck: Neck: no JVD Resp: Auscultation: clear to auscultation bilaterally Cardio: Rate: regular rate Rhythm: regular rhythm GI: Inspection: non-distended GI Palp: Yes Soft to palpation Skin: General skin exam: normal color Neuro: General: gait normal Speech: normal speech Extrem: General: normal to inspection Psych: Mental Status: mental status grossly normal Assessment and Plan Assessment and plan (1) Colon cancer screening: Code(s): Z12.11 - Encounter for screening for malignant neoplasm of colon Status: Acute Assessment and Plan: colonoscopy
[2024-07-26 08:31] VITALS: BP 152/78; PULSE 71; RESP 17; O2SAT 98
[2024-07-26 08:41] VITALS: BP 135/80; PULSE 70; RESP 17; O2SAT 98
[2024-07-26 08:51] VITALS: BP 119/93; PULSE 65; RESP 19; O2SAT 98
== END 2024-07-26 09:00 | disposition home or self-care (01) ==
PROVIDERS: Anesthesiology; PCP Family Medicine; Referring Provider Family Medicine; Visit Provider Internal Medicine Gastroenterology
PROC: 0DJD8ZZ Inspection of Lower Intestinal Tract, Via Natural or Artificial Opening Endoscopic (ICD-10-PCS; CPT 45378; principal; 2024-07-26 08:15)
DX: Z12.11 Encounter for screening for malignant neoplasm of colon (principal); E11.9 Type 2 diabetes mellitus without complications
CPT/HCPCS: 45378; 82948; J7120